=== PATIENT | female | born 1990 | race Caucasian/White ===

== ENCOUNTER → 2017-06-30 | Outpatient (CLI) | payer OTHER ==
[~2017-06-30] MED LIST: ACET325; ALBU90OI INH; ALBU90OI61 INH; AMOX500 PO; ANTOXYBENA BOTHEARS; ATOM40; AZEL.05OP OU; AZIT250 PO; Amoxicillin500 MG PO; BENZ100A PO; Bactroban22 GM TOP; CRYSELLE PO; ETHINYL ESTRADIOL; HYDACE5 PO; IBUP400 PO; IBUP600 PO; KETO10 PO; LORA2 PO; MULVITMINE PO; Minocycline HC100 M1 PO; Mobic15 MG PO; NORGESTIMATE; Norco 5-325 Ta1 EACH PO; OMEP20ER PO; OXYACE5T PO; PENVK500 PO; PRODEXEL PO; PROM25 PO; Percocet 5-3251 EACH PO; Prednisone20 MG PO; RXCLIN PO; RXHYDACE PO; SPACE CHAMBER1 EACH MC; SUCR1 PO; SULTRIDS PO; Sudafed 12 Hou120 MG PO; VITAMINS DAILY; Valium5 MG PO; Veetids 500500 MG PO; Ventolin Soln3 ML INH; ZYRTEC10 M2 PO; Zithromax250 MG PO; Zofran Odt4 MG SL
[2017-06-30 17:22] LABS: Specimen Source URINE
[2017-06-30 17:58] LABS: Appearance, Urine Hazy (Clear); Bilirubin, Urine Neg (Neg); Blood, Urine 5+ (Neg); Color, Urine Yellow (P-Yellow); Glucose Qualitative, Urine Neg (Neg); Ketones, Urine Neg (Neg); Leukocyte Esterase, Urine 3+ (Neg); Nitrite, Urine Neg (Neg); Protein, Urine 3+ (Neg); Specific Gravity, Urine 1.015 (1.003-1.022); Urobilinogen, Urine NORM (Normal); pH, Urine 6.5 (5.0-8.0)
[2017-06-30 18:17] LABS: Source, Urine Clean Catch
[2017-06-30 18:18] LABS: White Blood Cells, Urine TNTC /hpf (0-5)
[2017-06-30 18:19] LABS: Bacteria Few /hpf; Red Blood Cells, Urine 50-100 /hpf (0-2); Squamous Epithelial Cells Rare /hpf (Few)
[2017-07-01 15:59] LABS: Source Urine
== END | disposition home or self-care (01) ==
LOC: LAB 16:25
PROVIDERS: Advanced Practice Midwife
DX: Z11.3 Encounter for screening for infections with a predominantly sexual mode of transmission (principal); R35.0 Frequency of micturition
CPT/HCPCS: 81001; 87077; 87086; 87186; 87491; 87591

== ENCOUNTER 2018-06-19 06:47 | Inpatient (IN) | payer OTHER ==
[~2018-06-19] VITALS: Ht 160 cm; Wt 90.7 kg
[2018-06-19] MEDS ORDERED: EXPECTA PRENAT1 EACH (07:42)
[2018-06-19] MEDS ORDERED: ACYC400 (07:42)
[2018-06-19 08:38] LABS: BASOPHILS ABSOLUTE AUTO 0.05 K/mm3 (0.00-0.23); BASOPHILS PERCENT AUTO 0 % (0-2); EOSINOPHILS ABSOLUTE AUTO 0.26 K/mm3 (0.00-0.68); EOSINOPHILS PERCENT AUTO 1 % (0-6); Hemoglobin 13.5 g/dL (11.5-16.0); IMMATURE GRAN ABSOLUTE AUTO 0.21 K/mm3 (0.00-0.10); IMMATURE GRAN PERCENT AUTO 1 % (0-1); LYMPHOCYTES ABSOLUTE AUTO 2.85 K/mm3 (0.84-5.20); LYMPHOCYTES PERCENT AUTO 14 % (21-46); MONOCYTES ABSOLUTE AUTO 1.13 K/mm3 (0.16-1.47); MONOCYTES PERCENT AUTO 6 % (4-13); Mean Corpuscular HGB 32.1 pg (26.0-34.0); Mean Corpuscular HGB Conc 33.8 g/dL (31.5-36.5); Mean Corpuscular Volume 95 fL (80-100); Mean Platelet Volume 11.2 fL (9.1-12.4); NEUTROPHILS ABSOLUTE AUTO 15.26 K/mm3 (1.96-9.15); NEUTROPHILS PERCENT AUTO 77 % (41-73); Platelet Count 175 K/mm3 (150-400); RDW Coefficient Variation 13.9 % (11.7-14.2); Red Blood Cell Count 4.21 M/mm3 (3.80-5.20); White Blood Cell Count 19.76 K/mm3 (4.00-11.30)
[2018-06-19 11:12] LABS: PO2 Cord - Arterial 25.3 mmHg (16-20); pH Cord - Arterial 7.31 (7.28-7.35)
[2018-06-19 11:16] LABS: PCO2 Cord - Venous 42.7 mmHg (40-50); PO2 Cord - Venous 24.5 mmHg (28-32); pH Umbilical Cord - Venous 7.32 (7.26-7.35)
--- NOTE | 2018-06-19 14:05 | NUR ---
AMBULATING OUTSIDE WITH FAMILY
[2018-06-20 05:53] LABS: Hematocrit 32.2 % (33.0-51.0); Hemoglobin 10.5 g/dL (11.5-16.0); Mean Corpuscular HGB 32.2 pg (26.0-34.0); Mean Corpuscular HGB Conc 32.6 g/dL (31.5-36.5); Mean Platelet Volume 11.5 fL (9.1-12.4); Platelet Count 124 K/mm3 (150-400); RDW Standard Deviation 50.8 fL (35.1-46.3); Red Blood Cell Count 3.26 M/mm3 (3.80-5.20); White Blood Cell Count 16.75 K/mm3 (4.00-11.30)
[2018-06-20 05:55] LABS: Mean Corpuscular Volume 99 fL (80-100)
[2018-06-20] MEDS ORDERED: IBUP800 PO (12:18)
--- NOTE | 2018-06-20 12:24 | NUR ---
CONSULT. BABY IS JUST NOW 24 HOURS OLD AND HAS BEEN QUITE SLEEPY. MOM HAS HISTORY OF BF FOR 2-5 WEEKS, THEN SUPPLY RUNS OUT. BREASTS ARE WIDE SPACED, APPEAR PCOS. MOM ABLE TO SELF EBM WELL. BABY JUST FINISHING A FEEDING WHEN I ENTERED ROOM AND HE IS NOT RESPONSIVE NOW ON RELATCHING. NIPPLE WAS MOSTLY ROUNDED UPON HIS RELEASE. INSTRUCT/DEMO POSITIONING TO HELP OBTAIN A DEEPER ASYMETRIC LATCH AND THEN FURTHER WIDEN HIS LATCH IF SHE FEELS PINCHING. MOM IS EXPERIENCED AND HANDLES HIM WELL. INSTRUCT IN CHANGES TO EXPECT THIS FIRST WEEK WITH FEEDINGS AND WITH BABY AND REFERRED TO BF BROCHURE AND BF [facility]OOK[facility] [address] FOR PHOTOS AND INFORMATION. QUESTIONS ANSWERED. BOTH PARENTS LOVING WITH HIM.
--- NOTE | 2018-06-20 13:28 | NUR ---
DISCHARGE DISCHARGE HOME STABLE. PT VERBALIZES UNDERSTANDING OF DC INSTRUCTIONS AND APPOINTMENTS. NO QUESTIONS OR CONCERNS.
== END 2018-06-20 13:17 | disposition home or self-care (01) | DRG 807 ==
LOC: OBS 06:47 → BC 06:47 → OBS 08:17 → BC 08:18
PROVIDERS: Advanced Practice Midwife; ADMIT Obstetrics & Gynecology
PROC: 10E0XZZ Delivery of Products of Conception, External Approach (ICD-10-PCS; principal; 2018-06-19)
PROC: 10907ZC Drainage of Amniotic Fluid, Therapeutic from Products of Conception, Via Natural or Artificial Opening (ICD-10-PCS; 2018-06-19)
PROC: 3E0R3BZ Introduction of Anesthetic Agent into Spinal Canal, Percutaneous Approach (ICD-10-PCS; 2018-06-19)
DX: O76 Abnormality in fetal heart rate and rhythm complicating labor and delivery (principal); Z37.0 Single live birth; O66.0 Obstructed labor due to shoulder dystocia; Z3A.39 39 weeks gestation of pregnancy; O69.81X0 Labor and delivery complicated by cord around neck, without compression, not applicable or unspecified
CPT/HCPCS: 36415; 51702; 82803; 85025; 85027; J1885; J2001; J2590; J3010; J7120

== ENCOUNTER → 2018-10-18 | Outpatient (CLI) | payer OTHER ==
[~2018-10-18] MED LIST changes: +ACYC400; +EXPECTA PRENAT1 EACH; +IBUP800 PO
[2018-10-20 02:08] LABS: CHLAMYDIA TRACHOMATIS, NAA Negative (Negative); NEISSERIA GONORRHOEAE, NAA Negative (Negative)
== END | disposition home or self-care (01) ==
LOC: LAB SHORT 15:29 → LAB 15:29
PROVIDERS: Advanced Practice Midwife
DX: Z11.3 Encounter for screening for infections with a predominantly sexual mode of transmission (principal)
CPT/HCPCS: 87491; 87591

== ENCOUNTER 2018-11-18 13:51 | Emergency (ER) | payer OTHER ==
[~2018-11-18] VITALS: Ht 160 cm; Wt 88.5 kg
[2018-11-18] MEDS ORDERED: ALBU2.5V5 PO (14:34)
[2018-11-18] MEDS ORDERED: Sudogest30 MG PO (14:34)
== END 2018-11-18 16:28 | disposition home or self-care (01) ==
LOC: ER 13:51
DX: M77.52 Other enthesopathy of left foot and ankle (principal); J45.909 Unspecified asthma, uncomplicated; F41.9 Anxiety disorder, unspecified; F17.210 Nicotine dependence, cigarettes, uncomplicated; Z88.6 Allergy status to analgesic agent; Z88.4 Allergy status to anesthetic agent; Z79.899 Other long term (current) drug therapy
CPT/HCPCS: 73610; 73630; 99283-25

== ENCOUNTER 2019-04-28 09:41 | Emergency (ER) | payer OTHER ==
[~2019-04-28] VITALS: Ht 160 cm; Wt 81.7 kg
[~2019-04-28 09:41] MED LIST changes: +ALBU2.5V5 PO; +Sudogest30 MG PO
[2019-04-28 10:17] LABS: BASOPHILS ABSOLUTE AUTO 0.04 K/mm3 (0.00-0.23); BASOPHILS PERCENT AUTO 1 % (0-2); EOSINOPHILS ABSOLUTE AUTO 0.15 K/mm3 (0.00-0.68); EOSINOPHILS PERCENT AUTO 2 % (0-6); Hematocrit 45.5 % (33.0-51.0); Hemoglobin 14.9 g/dL (11.5-16.0); IMMATURE GRAN ABSOLUTE AUTO 0.03 K/mm3 (0.00-0.10); IMMATURE GRAN PERCENT AUTO 0 % (0-1); LYMPHOCYTES PERCENT AUTO 30 % (21-46); MONOCYTES ABSOLUTE AUTO 0.44 K/mm3 (0.16-1.47); MONOCYTES PERCENT AUTO 6 % (4-13); Mean Corpuscular HGB 31.6 pg (26.0-34.0); Mean Corpuscular HGB Conc 32.7 g/dL (31.5-36.5); Mean Corpuscular Volume 96 fL (80-100); Mean Platelet Volume 10.9 fL (9.1-12.4); NEUTROPHILS ABSOLUTE AUTO 4.14 K/mm3 (1.96-9.15); NEUTROPHILS PERCENT AUTO 60 % (41-73); Platelet Count 206 K/mm3 (150-400); RDW Coefficient Variation 13.2 % (11.7-14.2); RDW Standard Deviation 47.4 fL (35.1-46.3); Red Blood Cell Count 4.72 M/mm3 (3.80-5.20)
[2019-04-28 10:25] LABS: Source, Urine Clean Catch
[2019-04-28 10:28] LABS: Anion Gap 4 mmol/L (6-16); Blood Urea Nitrogen 17 mg/dL (8-24); Bun/Creatinine Ratio 17.4 (12.0-20.0); CO2, Blood 26 mmol/L (21-32); Calcium, Blood 9.2 mg/dL (8.5-10.1); Chloride, Blood 110 mmol/L (98-108); Creatinine, Blood 0.98 mg/dL (0.40-1.00); Glomerular Filtration Rate >60 (60-); Glucose, Blood 90 mg/dL (70-99); Potassium, Blood 3.9 mmol/L (3.5-5.5); Sodium, Blood 140 mmol/L (136-145)
[2019-04-28 10:47] LABS: Appearance, Urine Hazy (Clear); Bilirubin, Urine Neg (Neg); Blood, Urine 2+ (Neg); Color, Urine Yellow (P-Yellow); Glucose Qualitative, Urine Neg (Neg); Ketones, Urine Neg (Neg); Leukocyte Esterase, Urine 1+ (Neg); Nitrite, Urine Neg (Neg); Protein, Urine Neg (Neg); Urobilinogen, Urine NORM (Normal)
[2019-04-28 11:01] LABS: Red Blood Cells, Urine Not Seen /hpf (0-2); White Blood Cells, Urine 0-2 /hpf (0-5)
[2019-04-28 11:02] LABS: Amorphous Heavy (0-Heavy); Bacteria Not Seen /hpf
[2019-04-28 11:08] LABS: Squamous Epithelial Cells Many /hpf (Few)
[2019-04-28] MEDS ORDERED: Arthritis Pai42.5 GM TOP (11:16)
== END 2019-04-28 11:56 | disposition home or self-care (01) ==
LOC: ER 09:41
PROVIDERS: Emergency Medicine
DX: M46.1 Sacroiliitis, not elsewhere classified (principal); F17.210 Nicotine dependence, cigarettes, uncomplicated; Z88.5 Allergy status to narcotic agent; Z88.4 Allergy status to anesthetic agent
CPT/HCPCS: 36415; 80048; 81001; 81025; 85025; 96374; 99283-25; J1885

== ENCOUNTER 2019-08-07 11:44 | Emergency (ER) | payer OTHER ==
[~2019-08-07] VITALS: Ht 160 cm; Wt 86.2 kg
[~2019-08-07 11:44] MED LIST changes: +Arthritis Pai42.5 GM TOP
[2019-08-07 12:59] LABS: Source, Urine Clean Catch
[2019-08-07 13:04] LABS: BASOPHILS ABSOLUTE AUTO 0.03 K/mm3 (0.00-0.23); BASOPHILS PERCENT AUTO 0 % (0-2); EOSINOPHILS ABSOLUTE AUTO 0.21 K/mm3 (0.00-0.68); EOSINOPHILS PERCENT AUTO 2 % (0-6); Hematocrit 47.3 % (33.0-51.0); Hemoglobin 15.4 g/dL (11.5-16.0); IMMATURE GRAN ABSOLUTE AUTO 0.04 K/mm3 (0.00-0.10); IMMATURE GRAN PERCENT AUTO 0 % (0-1); LYMPHOCYTES ABSOLUTE AUTO 1.61 K/mm3 (0.84-5.20); LYMPHOCYTES PERCENT AUTO 15 % (21-46); MONOCYTES ABSOLUTE AUTO 0.36 K/mm3 (0.16-1.47); MONOCYTES PERCENT AUTO 3 % (4-13); Mean Corpuscular HGB 31.4 pg (26.0-34.0); Mean Corpuscular HGB Conc 32.6 g/dL (31.5-36.5); Mean Corpuscular Volume 97 fL (80-100); Mean Platelet Volume 11.3 fL (9.1-12.4); NEUTROPHILS PERCENT AUTO 79 % (41-73); Platelet Count 206 K/mm3 (150-400); RDW Coefficient Variation 13.1 % (11.7-14.2); RDW Standard Deviation 46.7 fL (35.1-46.3); White Blood Cell Count 10.65 K/mm3 (4.00-11.30)
[2019-08-07 13:12] LABS: Alanine Aminotransfer (ALT/SGP 24 U/L (12-78); Albumin, Blood 4.5 g/dL (3.4-5.0); Albumin/Globulin Ratio 1.1 (0.8-1.8); Alk Phos 61 U/L (50-136); Anion Gap 5 mmol/L (6-16); Aspartate Aminotrans (AST/SGOT 19 U/L (12-37); Bilirubin, Total 0.7 mg/dL (0.1-1.0); Blood Urea Nitrogen 8 mg/dL (8-24); Bun/Creatinine Ratio 9.1 (12.0-20.0); CO2, Blood 24 mmol/L (21-32); Calcium, Blood 9.1 mg/dL (8.5-10.1); Chloride, Blood 110 mmol/L (98-108); Creatinine, Blood 0.88 mg/dL (0.40-1.00); Glomerular Filtration Rate >60 (60-); Glucose, Blood 78 mg/dL (70-99); Potassium, Blood 3.6 mmol/L (3.5-5.5); Sodium, Blood 139 mmol/L (136-145); Total Protein, Blood 8.5 g/dL (6.4-8.2)
[2019-08-07 13:38] LABS: Bilirubin, Urine Neg (Neg); Blood, Urine Neg (Neg); Glucose Qualitative, Urine Neg (Neg); Ketones, Urine Neg (Neg); Leukocyte Esterase, Urine Neg (Neg); Nitrite, Urine Neg (Neg); Protein, Urine Neg (Neg); Urobilinogen, Urine NORM (Normal)
[2019-08-07 14:13] LABS: Appearance, Urine Clear (Clear); Color, Urine Yellow (P-Yellow)
[2019-08-07] MEDS ORDERED: KETO10 PO (16:50)
[2019-08-07] MEDS ORDERED: ONDA4ODT MM (16:50)
== END 2019-08-07 17:05 | disposition home or self-care (01) ==
LOC: ER 11:44
PROVIDERS: Physician Assistant
DX: G43.909 Migraine, unspecified, not intractable, without status migrainosus (principal); J32.9 Chronic sinusitis, unspecified; F41.9 Anxiety disorder, unspecified; J45.909 Unspecified asthma, uncomplicated; F17.210 Nicotine dependence, cigarettes, uncomplicated; Z88.5 Allergy status to narcotic agent; Z88.4 Allergy status to anesthetic agent
CPT/HCPCS: 36415; 70450; 80053; 81003; 81025; 83690; 85025; 96374; 96375; 99284-25; J0780; J1200; J1885; J7030

== ENCOUNTER 2021-05-28 22:16 | Emergency (ER) | payer OTHER ==
[~2021-05-28] VITALS: Ht 160 cm; Wt 81.7 kg
[~2021-05-28 22:16] MED LIST changes: +ONDA4ODT MM
[2021-05-29] MEDS ORDERED: AMOCLA875 PO (01:13)
== END 2021-05-29 01:35 | disposition home or self-care (01) ==
LOC: ER 22:16
DX: L05.91 Pilonidal cyst without abscess (principal); Z88.5 Allergy status to narcotic agent; J45.909 Unspecified asthma, uncomplicated; F17.210 Nicotine dependence, cigarettes, uncomplicated
CPT/HCPCS: A9270; J1885

== ENCOUNTER → 2023-09-06 | Outpatient (CLI) | payer OTHER ==
[~2023-09-06] MED LIST changes: +AMOCLA875 PO; +NYSTRIT TOP; +ONDA4 PO
[2023-09-06 20:36] LABS: Bacterial Vaginosis PCR Negative (NEGATIVE); Candida Group, PCR NOT DETECTED (NOT DETECT)
[2023-09-06 20:54] LABS: Candida glabrata-krusei, PCR DETECTED (NOT DETECT)
[2023-09-11 08:34] LABS: HPV HIGH RISK BY TMA Not Detected; HPV SOURCE Cervical
== END ==
LOC: LAB 16:11 → LAB SHORT 16:11
PROVIDERS: Advanced Practice Midwife
DX: Z01.419 Encounter for gynecological examination (general) (routine) without abnormal findings (principal); N76.0 Acute vaginitis
CPT/HCPCS: 87481; 87624; 87661; 87801; G0123

== ENCOUNTER → 2024-03-13 | Outpatient (CLI) | payer OTHER | END | disposition home or self-care (01) | LOC: LAB SHORT 08:58 → LAB 08:58 | DX: R30.0 Dysuria (principal) | CPT/HCPCS: 87077; 87086; 87186 ==

== ENCOUNTER 2024-06-01 20:41 | Emergency (ER) | payer OTHER ==
[~2024-06-01] VITALS: Ht 167.6 cm; Wt 81.7 kg
[~2024-06-01 20:41] MED LIST changes: +BUSPIRONE HCL7.5 M1 PO; +MULVITA PO; +Nicoderm Cq1 EACH TOP; +PROBIOTIC1 EA14 PO; +SERT50 PO; +TRAZ50 PO
[2024-06-01 20:49] VITALS: BP 100/65
== END 2024-06-01 21:06 | disposition home or self-care (01) ==
LOC: ER 20:41
DX: J34.89 Other specified disorders of nose and nasal sinuses (principal); J45.909 Unspecified asthma, uncomplicated; F17.210 Nicotine dependence, cigarettes, uncomplicated; Z79.899 Other long term (current) drug therapy; Z88.5 Allergy status to narcotic agent; Z88.8 Allergy status to other drugs, medicaments and biological substances
CPT/HCPCS: 99282

== ENCOUNTER → 2025-01-03 | Outpatient (CLI) | payer OTHER | END | disposition home or self-care (01) | LOC: LAB SHORT 16:55 → LAB 16:55 | DX: O09.523 Supervision of elderly multigravida, third trimester (principal); Z3A.00 Weeks of gestation of pregnancy not specified | CPT/HCPCS: 87081; 87150 ==

== ENCOUNTER 2025-01-21 19:05 | Inpatient (IN) | payer OTHER ==
[~2025-01-21] VITALS: Ht 160 cm; Wt 118.0 kg
[2025-01-21 19:23] VITALS: BP 116/66
[2025-01-21 21:43] VITALS: BP 113/56
[2025-01-21 22:41] LABS: BASOPHILS ABSOLUTE AUTO 0.02 K/mm3 (0.00-0.23); BASOPHILS PERCENT AUTO 0 % (0-2); EOSINOPHILS ABSOLUTE AUTO 0.13 K/mm3 (0.00-0.68); EOSINOPHILS PERCENT AUTO 1 % (0-6); Hematocrit 32.2 % (33.0-51.0); Hemoglobin 10.7 g/dL (11.5-16.0); IMMATURE GRAN ABSOLUTE AUTO 0.10 K/mm3 (0.00-0.10); IMMATURE GRAN PERCENT AUTO 1 % (0-1); LYMPHOCYTES ABSOLUTE AUTO 2.26 K/mm3 (0.84-5.20); LYMPHOCYTES PERCENT AUTO 23 % (21-46); MONOCYTES ABSOLUTE AUTO 0.70 K/mm3 (0.16-1.47); MONOCYTES PERCENT AUTO 7 % (4-13); Mean Corpuscular HGB Conc 33.2 g/dL (31.5-36.5); Mean Corpuscular Volume 94 fL (80-100); NEUTROPHILS ABSOLUTE AUTO 6.54 K/mm3 (1.96-9.15); NEUTROPHILS PERCENT AUTO 67 % (41-73); NRBC ABSOLUTE 0.00 K/mm3 (0.00-0.02); NRBC Auto 0.0 /100 WBC (0.0-0.2); Platelet Count 166 K/mm3 (150-400); RDW Coefficient Variation 15.3 % (11.7-14.2); RDW Standard Deviation 52.2 fL (35.1-46.3)
[2025-01-21] MEDS ORDERED: GABA300 PO (22:42)
[2025-01-21] MEDS ORDERED: PRENATAL TABLE1 EAC2 PO (22:42)
[2025-01-21 23:15] VITALS: BP 113/62
[2025-01-22] VITALS (21 sets, daily range): BP systolic 91–125; BP diastolic 52–77
[2025-01-22] MEDS ORDERED: Albuterol HFA200 ACT/6.7 GM INH INH PRN (08:30)
[2025-01-22] MEDS ORDERED: ePHEDrine Sulfate 50 MG/ML 1ML Injection XX PRN (09:05)
[2025-01-22] MEDS ORDERED: FentaNYL 2mcg/ml-Bup 0.1% Epd 250 ML EPI PRN (09:05)
[2025-01-22] MEDS ORDERED: Oxytocin 10 Unit / ML Vial IM PRN (10:00)
[2025-01-22] MEDS ORDERED: Ondansetron HCl 2 MG / ML 2ML Vial IV PRN (10:00)
[2025-01-22] MEDS ORDERED: Tranexamic Acid 100 ML IV SCH (10:00)
[2025-01-22] MEDS ORDERED: Carboprost Tromethamine 250 MCG/ML 1ML Amp IM PRN (10:00)
[2025-01-22] MEDS ORDERED: OXYTOCIN/RINGER'S LACTATE 500 ML IV PRN (10:00)
[2025-01-22] MEDS ORDERED: Methylergonovine Maleate 0.2MG / ML 1ML Amp IM PRN (10:00)
[2025-01-22] MEDS ORDERED: OXYTOCIN/RINGER'S LACTATE 500 ML IV SCH (15:15)
[2025-01-22] MEDS ORDERED: CeFAZolin Sodium 2,000 MG in NS 100 ML IV SCH (23:10)
[2025-01-22] MEDS ORDERED: Metoclopramide HCl 5MG / ML 2ML Vial IV ONE (23:15)
[2025-01-22] MEDS ORDERED: Citric Acid/Sodium Citrate 30 ML BTL PO ONE (23:15)
[2025-01-23] VITALS (16 sets, daily range): BP systolic 92–121; BP diastolic 50–84
[2025-01-23] MEDS ORDERED: Tranexamic Acid 100 ML IV ONE (00:21)
[2025-01-23] MEDS ORDERED: Phenylephrine HCl 100 MCG/ML-NS 10MLSYR (1MG/10ML) ONE ×2 (00:28→00:35)
[2025-01-23] MEDS ORDERED: Oxytocin 10 Unit / ML Vial ONE ×4 (00:35→01:02)
[2025-01-23] MEDS ORDERED: Ondansetron HCl 2 MG / ML 2ML Vial ONE (00:43)
[2025-01-23] MEDS ORDERED: FentaNYL Citrate 50 MCG/ML 2 ML Injection ONE ×2 (00:45→01:14)
[2025-01-23] MEDS ORDERED: HYDROmorphone HCl/Pf 1MG SYR IV PRN ×2 (01:10→02:05)
[2025-01-23] MEDS ORDERED: FentaNYL Citrate 50 MCG/ML 2 ML Injection IV PRN (01:10)
[2025-01-23] MEDS ORDERED: Ondansetron HCl 2 MG / ML 2ML Vial IV PRN ×2 (01:15→02:15)
[2025-01-23] MEDS ORDERED: Ketorolac Tromethamine 30mg Vial ONE (01:48)
[2025-01-23] MEDS ORDERED: Rho(D) Immune Globulin 300 MCG / SYR IM ONE (02:10)
[2025-01-23] MEDS ORDERED: OXYTOCIN/RINGER'S LACTATE 16.66666666 ML IV SCH (02:10)
[2025-01-23] MEDS ORDERED: Magnesium Hydroxide Conc 10 ML UDC PO PRN (02:10)
[2025-01-23] MEDS ORDERED: Albuterol HFA200 ACT/6.7 GM INH INH PRN (02:20)
[2025-01-23] MEDS ORDERED: Ketorolac Tromethamine 30mg Vial IV SCH ×2 (03:00→07:30)
--- NOTE | 2025-01-23 05:02 | NUR ---
Assumed care in room after PACU recovery at 0400. Patient reports pain of 8/10 when moving or during fundal massage, medicated as ordered and documented in [facility]. Light bleeding with fundal checks, caldwell in place and draining clear yellow urine, crozer operator reported sterile technique was unable to be maintained when caldwell replacement was needed in the OR. SCDs in place and on. Patient was snacking on pudding and drinking water with no discomfort at this time.
[2025-01-23 06:40] LABS: Source, Urine Foley catheter
[2025-01-23 06:44] LABS: Bilirubin, Urine Neg (Neg); Color, Urine Yellow (P-Yellow); Glucose Qualitative, Urine Neg (Neg); Ketones, Urine Neg (Neg); Leukocyte Esterase, Urine Neg (Neg); Protein, Urine Neg (Neg); Specific Gravity, Urine 1.010 (1.003-1.022); Urobilinogen, Urine NORM (Normal)
[2025-01-23 06:54] LABS: White Blood Cells, Urine 0-2 /hpf (0-5)
[2025-01-23 07:15] LABS: BASOPHILS ABSOLUTE AUTO 0.03 K/mm3 (0.00-0.23); BASOPHILS PERCENT AUTO 0 % (0-2); EOSINOPHILS ABSOLUTE AUTO 0.02 K/mm3 (0.00-0.68); EOSINOPHILS PERCENT AUTO 0 % (0-6); Hematocrit 28.0 % (33.0-51.0); Hemoglobin 9.5 g/dL (11.5-16.0); IMMATURE GRAN ABSOLUTE AUTO 0.09 K/mm3 (0.00-0.10); IMMATURE GRAN PERCENT AUTO 1 % (0-1); LYMPHOCYTES ABSOLUTE AUTO 1.57 K/mm3 (0.84-5.20); LYMPHOCYTES PERCENT AUTO 9 % (21-46); MONOCYTES ABSOLUTE AUTO 0.95 K/mm3 (0.16-1.47); MONOCYTES PERCENT AUTO 5 % (4-13); Mean Corpuscular HGB Conc 33.9 g/dL (31.5-36.5); Mean Corpuscular Volume 94 fL (80-100); NEUTROPHILS ABSOLUTE AUTO 15.09 K/mm3 (1.96-9.15); NEUTROPHILS PERCENT AUTO 85 % (41-73); NRBC ABSOLUTE 0.00 K/mm3 (0.00-0.02); NRBC Auto 0.0 /100 WBC (0.0-0.2); Platelet Count 152 K/mm3 (150-400); RDW Coefficient Variation 15.4 % (11.7-14.2); RDW Standard Deviation 53.0 fL (35.1-46.3)
[2025-01-23] MEDS ORDERED: Polyethylene Glycol 3350 17 gm PO SCH (09:00)
[2025-01-23] MEDS ORDERED: Prenatal Vit/FE Fumarate/FA 1 Tab PO SCH (09:00)
[2025-01-24] VITALS (9 sets, daily range): BP systolic 83–103; BP diastolic 49–56
--- NOTE | 2025-01-24 18:31 | NUR ---
EPDS SCREEN OF 10, CARE MANAGEMENT CONSULT PLACED. RN DISCUSSED SCORE WITH PT, SHE STATES THAT THIS IS [facility] DEPRESSION THAT IS STABLE AND SHE PLANS TO RESTART MEDS AFTER WEANING OFF OF GABAPENTIN, SHE ALSO HAS COUNSELING ESTABLISHED. CONTRACT CONSULTANT DOWN TO TALK WITH PT THAT ASSESSED PT'S MOOD APPEARS STABLE AND SHE HAS GOOD RESOURCES. AWARE OF SCORE. PT ASKED TO SCHEDULE APPT WITH [facility] FOR WITHIN 2 WEEKS.
[2025-01-25 04:20] VITALS: BP 100/55
[2025-01-25 08:05] VITALS: BP 99/52
[2025-01-25 12:00] VITALS: BP 99/53
--- NOTE | 2025-01-25 15:00 | NUR ---
No acute changes t/o shift. ID bands matched w/nb. Printed instructions reviewed by pt, verbalized understanding of herself and nb teaching. Pt d/c'd home ambulatory to care of .
[2025-01-25 15:03] VITALS: BP 100/60
== END 2025-01-25 15:07 | disposition home or self-care (01) | DRG 787 ==
LOC: BC 19:05 → OBS 19:05 → BC 19:08 → OBS 21:29 → BC 22:00 → OBS 22:00 → BC 22:30
PROVIDERS: Family Medicine; Obstetrics & Gynecology; ADMIT Obstetrics & Gynecology
PROC: 10D00Z1 Extraction of Products of Conception, Low, Open Approach (ICD-10-PCS; principal; 2025-01-23)
DX: O62.1 Secondary uterine inertia (principal); O99.354 Diseases of the nervous system complicating childbirth; O99.214 Obesity complicating childbirth; O99.344 Other mental disorders complicating childbirth; F41.8 Other specified anxiety disorders; G56.01 Carpal tunnel syndrome, right upper limb; O99.02 Anemia complicating childbirth; O99.52 Diseases of the respiratory system complicating childbirth; J45.909 Unspecified asthma, uncomplicated; O47.9 False labor, unspecified; Z98.890 Other specified postprocedural states; Z87.891 Personal history of nicotine dependence; Z88.5 Allergy status to narcotic agent; Z88.8 Allergy status to other drugs, medicaments and biological substances; Z79.899 Other long term (current) drug therapy
CPT/HCPCS: 36415; 51702; 59025; 81001; 81003; 85025; 86850; 86900; 86901; 86923; 94640; 94664; 94760; 99214; A9270; J0690; J1885; J2371; J2405; J2590; J2704; J3010; J7120